=== PATIENT | female | born 1990 | race Caucasian/White ===

== ENCOUNTER 2016-11-01 19:37 | Emergency (ER) | payer OTHER ==
[2016-11-01] MEDS ORDERED: ACETAMINOPHEN 325 MG TABLET ONE ×3 (20:49→20:51)
--- NOTE | 2016-11-01 21:11 | RAD ---
CHEST 2 VIEWS HISTORY: Cough x1 week. Frontal and lateral chest radiographs dated 11/01/2016. COMPARISON: None. FINDINGS: FOCAL AIRSPACE OPACITY: No gross airspace consolidation. PLEURAL EFFUSION: None. CARDIOMEDIASTINAL SILHOUETTE: Nonenlarged. PNEUMOTHORAX: None identified. OSSEOUS STRUCTURES: No grossly destructive lesions. RADIOPAQUE FOREIGN BODY: Radiodensity of the anterior chest wall, correlate for cosmetic microimplant. IMPRESSION: No acute cardiopulmonary process noted.
== END 2016-11-01 21:38 | disposition home or self-care (01) ==
LOC: ED 19:37
DX: J09.X2 Influenza due to identified novel influenza A virus with other respiratory manifestations (principal); R50.9 Fever, unspecified
CPT/HCPCS: 71020; 87804; 99283 ×2; A9270 ×3